=== PATIENT | male | born 1980 | race American Indian/Alaskan Native ===

== ENCOUNTER 2019-11-10 11:58 | Emergency (ER) | payer SELFPAY ==
[2019-11-10 12:04] VITALS: BP 142/81
--- NOTE | 2019-11-10 12:33 | Emergency Department Report ---
Chief Complaint: Upper Respiratory Infection Stated Complaint: SOB Time Seen by Provider: 11/10/19 12:19 - HPI History of Present Illness: 39-year-old -[place] male chronic cannabis smoker presents emergency department complaining of cough with mucus production and seeks to have a coronavirus test due to the mucus production. Patient states been looked on [employer] 1 of the symptoms were coughing and again he just wanted to be checked because he has kids at home to be certain he does not have coronavirus. To his knowledge she has no known contact with the coronavirus she is currently works at [employer] but states that he wears a glove and mask when when doing so - ROS Review of Systems: As per HPI all other systems are negative - Exam Vital Signs: Vital Signs 11/10/19 12:04 Pulse Rate 99 H Respiratory 16 Rate Blood Pressure 142/81 [Right] O2 Sat by Pulse 99 Oximetry Physical Exam: Vital signs stable. Patient is ambulatory no distress General: Patient is well nourished, well developed, awake and alert, resting comfortably in no acute distress Head: Normocephalic and atraumatic Eyes: Normal inspection, extraocular muscles intact, no conjunctival pallor Ear, nose, throat: Normal external exam Neck: Normal range of motion Respiratory: Patient is in no respiratory distress, lungs CTAB Cardiovascular: Patient is not tachycardic, RRR without murmur appreciated GI: Abd abdomen is soft and nontender no guarding or rebound is noted Back: Normal inspection of the back with good strength and range of motion thr oughout all ext Extremities: pulses intact with good cap refills, no LE pitting edema or calf tenderness Neuro: The patient is alert and oriented to person, place, and time, appropriately conversive, with 5/5 bilat UE/LE strength, no gross motor or sensory defects noted. Coordination appears to be adequate. Skin: Warm, dry, and intact MSE screening note: Focused history and physical exam performed. Due to findings the following was ordered: ED Medical Decision Making - Medical Decision Making This patient presents with acute cough, most consistent with bronchitis. Differential diagnosis includes bronchitis, asthma, URI. Presentation not consistent with acute bacterial pneumonia, influenza, asthma, transient airway hyperresponsiveness. Presentation not consistent with chronic causes of cough (including GERD, asthma, postnasal discharge, medication side effect, CHF, lung cancer or mass). Patient did not make criteria to test for COVID-19. Very doubtful pneumonia, sepsis, other serious bacterial infection or acute emergent condition. Mr. Arroyo is otherwise well-appearing with acceptable vitals and a reassuring physical examination leg series medical comorbidities that would require admission. Mr. Arroyo is nontoxic and appears safe for discharge home. Will provide instructions on precautions and instructions on self isolation should he come in contact with the coronavirus and anticipatory guidance Plan: , supportive care, reassess ED Disposition for MSE Clinical Impression: Cough Disposition: MED SCREENING EXAM-LEFT Condition: Stable Instructions: Cold Symptoms (ED), Chronic Cough (ED) Referrals: [facility] [Provider Group] - 3-5 Days
== END 2019-11-10 12:20 | disposition left against medical advice (07) ==
LOC: ED 11:58
DX: R05 Cough (principal)
CPT/HCPCS: 99281

== ENCOUNTER 2021-08-14 22:22 | Emergency (ER) | payer SELFPAY ==
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
[2021-08-15] MEDS ORDERED: predniSONE 20 MG TAB PO ONE (07:04)
[2021-08-15] MEDS ORDERED: traMADol 50 MG TAB PO ONE (07:04)
[2021-08-15] MEDS ORDERED: IBUPROFEN 800 MG TAB PO ONE (07:04)
[2021-08-15 08:02] VITALS: BP 132/80
== END 2021-08-15 08:01 | disposition home or self-care (01) ==
LOC: ED 22:22
DX: S39.012A Strain of muscle, fascia and tendon of lower back, initial encounter (principal); F12.90 Cannabis use, unspecified, uncomplicated; X58.XXXA Exposure to other specified factors, initial encounter; Y93.89 Activity, other specified; Y92.89 Other specified places as the place of occurrence of the external cause; Y99.8 Other external cause status
CPT/HCPCS: 72040; 72100; 99283